=== PATIENT | female | born 1995 | race Caucasian/White ===

== ENCOUNTER 2018-12-01 23:04 | Emergency (ER) | payer OTHER ==
[~2018-12-01] VITALS: Ht 152.4 cm; Wt 77.1 kg
[2018-12-01 23:22] VITALS: Ht 152.4 cm; Wt 77.1 kg
[2018-12-02 00:49] VITALS: BP 124/72
== END 2018-12-02 00:49 | disposition home or self-care (01) ==
LOC: ED 23:04
DX: L60.0 Ingrowing nail (principal)